=== PATIENT | female | born 1995 | race African-American/Black ===

== ENCOUNTER 2019-07-31 15:51 | Emergency (ER) | payer OTHER ==
--- NOTE | 2019-07-31 15:55 | PDOC ---
Rapid Medical Evaluation Time Seen by Provider: 07/31/19 15:52 Medical Evaluation: 07/31/19 15:54 CC: 9wks with vaginal spotting. LMP-05/23 PE: deferred Orders: PVB w/u Patient will proceed to ED for further evaluation.
[2019-07-31 15:59] VITALS: BP 111/76; PULSE 76; TEMP 98.5; BMI 40.6
[2019-07-31 16:35] LABS: EPI CELLS 34.6 /HPF (0-5/HPF); HYALINE CASTS 9 /lpf (0-8); PH,URINE 5.5 (5.0-8.0); URINE APPEARANCE CLOUDY; URINE BACTERIA 508.1 /hpf (NEGATIVE); URINE BILIRUBIN NEGATIVE (NEGATIVE); URINE COLOR YELLOW; URINE GLUCOSE (UA) NEGATIVE (NEGATIVE); URINE KETONE NEGATIVE (NEGATIVE); URINE LEUK ESTERASE NEGATIVE (NEGATIVE); URINE NITRITE NEGATIVE (NEGATIVE); URINE PROTEIN 1+ (NEGATIVE); URINE UROBILINOGEN 0.2 mg/dL (0.2-1.0); URINE WBC 3 /hpf (0-5)
[2019-07-31 16:49] LABS: BASO % 0.5 % (0-2.0); EOS % 2.5 % (0-4.5); HEMATOCRIT 36.7 % (32.4-45.2); HEMOGLOBIN 12.4 GM/dL (10.7-15.3); LYMPH % 36.4 % (8-40); MCH 30.9 pg (25.7-33.7); MCHC 33.7 g/dl (32.0-36.0); MEAN CELL VOLUME 91.6 fl (80-96); MEAN PLT VOLUME 8.4 fl (7.5-11.1); MONO % 4.9 % (3.8-10.2); NEUT % 55.7 % (42.8-82.8); PLATELET COUNT 291 K/MM3 (134-434); RBC 4.01 M/mm3 (3.60-5.2); WHITE BLOOD COUNT 9.8 K/mm3 (4.0-10.0)
--- NOTE | 2019-07-31 17:00 | PDOC ---
History of Present Illness - General Chief Complaint: Vaginal Bleeding Stated Complaint: 10 WK PREG / BLEED Time Seen by Provider: 07/31/19 15:52 History Source: Patient Exam Limitations: No Limitations - History of Present Illness Travel History: No Initial Comments: 07/31/19 16:38 23-year-old G3, P1 female currently 10 weeks presents to ED with dark brown discharge noted this morning upon upon wiping after urination patient denies abdominal pain, recent intercourse, or history of ovarian cyst. Patient does state had an ultrasound done on July 25 which showed a heart rate of 184 bpm measuring 9 weeks 3 days. patient has no urinary complaints or bowel complaint Aggravating Factors: improves with: None Alleviating Factors: improves with: None Past History - Travel Traveled outside of the country in the last 30 days: No Close contact w/someone who was outside of country & ill: No - Past Medical History Allergies/Adverse Reactions: Allergies Allergy/AdvReac Type Severity Reaction Status Date / Time No Known Allergies Allergy Verified 07/31/19 16:35 Home Medications: Ambulatory Orders NK [No Known Home Medication] 07/31/19 Asthma: Yes COPD: No - Reproductive History (#): 3 Para: 1 - Immunization History Immunization Up to Date: Yes - Psycho Social/Smoking Cessation Hx Smoking History: Never smoked Information on smoking cessation initiated: No Hx Alcohol Use: No Drug/Substance Use Hx: No Patient Lives Alone: No Lives with/in: spouse/SO Review of Systems - Review of Systems Able to Perform ROS?: No Is the patient limited Persian proficient: No Constitutional: No: Symptoms Reported ABD/GI: No: Abdominal cramping : Yes: Discharge (pink - brownish ) Integumentary: No: Symptoms Reported Neurological: No: Symptoms reported Hematologic/Lymphatic: No: Symptoms Reported *Physical Exam - Vital Signs Last Vital Signs Temp Pulse Resp BP Pulse Ox 98.5 F 76 17 111/76 100 07/31/19 15:56 07/31/19 15:56 07/31/19 15:56 07/31/19 15:56 07/31/19 15:56 - Physical Exam General Appearance: Yes: Nourished, Appropriately Dressed. No: Apparent Distress HEENT: positive: EOMI. negative: Pale Conjunctivae Neck: positive: Supple Respiratory/Chest: positive: Lungs Clear, Normal Breath Sounds. negative: Respiratory Distress, Accessory Muscle Use Cardiovascular: positive: Regular Rhythm, Regular Rate. negative: Murmur Gastrointestinal/Abdominal: positive: Soft. negative: Tenderness Musculoskeletal: negative: CVA Tenderness Extremity: positive: Normal Inspection Integumentary: positive: Normal Color, Warm, Moist Neurologic: positive: Motor Strength 5/5 (ambulatory) ED Treatment Course - LABORATORY CBC & Chemistry Diagram: 07/31/19 16:15 07/31/19 16:15 - ADDITIONAL ORDERS Additional order review: Laboratory Results 07/31/19 16:21 Urine Color Yellow Urine Appearance Cloudy Urine pH 5.5 Ur Specific Majestic 1.024 Urine Protein 1+ H Urine Glucose (UA) Negative Urine Ketones Negative Urine Blood 3+ H Urine Nitrite Negative Urine Bilirubin Negative Urine Urobilinogen 0.2 Ur Leukocyte Esterase Negative Urine WBC (Auto) 3 Urine Casts (Auto) 9 U Epithel Cells (Auto) 34.6 Urine Bacteria (Auto) 508.1 07/31/19 16:15 RBC 4.01 MCV 91.6 MCHC 33.7 RDW 13.0 MPV 8.4 Neutrophils % 55.7 Lymphocytes % 36.4 Monocytes % 4.9 Eosinophils % 2.5 Basophils % 0.5 Medical Decision Making - Medical Decision Making 07/31/19 17:02 Chief complaint: Spotting after wiping herself with urination, 10 weeks Exam: no abd tenderness. no discharge or bleeding, vss Plan: labs, urine, u/s 07/31/19 17:12 Laboratory Tests 07/31/19 07/31/19 07/31/19 16:15 16:15 16:21 WBC 9.8 Hgb 12.4 Hct 36.7 Neutrophils % 55.7 PT with INR 11.30 INR 0.96 PTT (Actin FS) 28.1 Ur Leukocyte Esterase Negative Urine WBC (Auto) 3 Urine Casts (Auto) 9 07/31/19 17:56 Ultrasound shows an intrauterine measuring 10 weeks 1 day. heart rate is measured at 159 bpm. Both ovaries appear unremarkable with normal vascular flow. Explained to patient this may do may be due to exertional sexual intercourse and to try different positions and force. patient may follow-up with her [facility] Discharge - Discharge Information Problems reviewed: Yes Clinical Impression/Diagnosis: Spotting during in first trimester Condition: Good Disposition: HOME - Follow up/Referral - Patient Discharge Instructions Patient Printed Discharge Instructions: The Truth About Sex During Additional Instructions: May take Tylenol as needed for any discomfort. Please avoid exertional sexual intercourse and follow-up with your [facility] as scheduled this Wednesday - Post Discharge Activity
[2019-07-31 17:15] LABS: URINE RBC 10.1 /hpf (0-4)
[2019-07-31 17:31] LABS: ALBUMIN 3.4 g/dl (3.4-5.0); BILIRUBIN,TOTAL 0.4 mg/dL (0.2-1); BLOOD UREA NITROGEN 14.2 mg/dL (7-18); CALCIUM 9.1 mg/dL (8.5-10.1); CREATININE 0.8 mg/dL (0.55-1.3); POTASSIUM 3.7 mmol/L (3.5-5.1); TOT PROT 7.1 g/dl (6.4-8.2)
[2019-07-31 19:54] LABS: INR 0.95 (0.83-1.09); PROTHROMBIN TIME (PATIENT) 11.2 SEC (9.7-13.0)
== END 2019-07-31 18:25 | disposition home or self-care (01) ==
LOC: JER 15:51
DX: O26.891 Other specified pregnancy related conditions, first trimester (principal); O26.851 Spotting complicating pregnancy, first trimester; Z3A.10 10 weeks gestation of pregnancy
CPT/HCPCS: 36415; 76801-TC; 80053; 81003; 84702; 85025; 85610; 85730; 86850; 86900; 86901; 87086; 99282-25

== ENCOUNTER 2021-08-29 07:00 | Inpatient (IN) | payer OTHER ==
[2021-08-29 08:54] VITALS: BMI 39.8
[2021-08-29 08:58] LABS: BASO % 0.3 % (0-2.0); HEMATOCRIT 31.7 % (32.4-45.2); HEMOGLOBIN 10.7 GM/dL (10.7-15.3); LYMPH % 28.2 % (8-40); MCH 29.2 pg (25.7-33.7); MCHC 33.7 g/dl (32.0-36.0); MEAN CELL VOLUME 86.7 fl (80-96); MEAN PLT VOLUME 8.9 fl (7.5-11.1); MONO % 7.4 % (3.8-10.2); NEUT % 63.1 % (42.8-82.8); PLATELET COUNT 246 10^3/uL (134-434); RBC 3.65 M/mm3 (3.60-5.2); RDW 14.7 % (11.6-15.6); WHITE BLOOD COUNT 8.4 K/mm3 (4.0-10.0)
[2021-08-29 09:03] LABS: INR 0.96 (0.83-1.09); PROTHROMBIN TIME (PATIENT) 10.8 SEC (9.7-13.0)
[2021-08-29 09:06] LABS: ACTIVATED PTT 24.3 SECONDS (25.2-36.5)
[2021-08-29 09:22] LABS: CALCIUM 8.4 mg/dL (8.5-10.1)
[2021-08-29 09:26] LABS: CREATININE 0.7 mg/dL (0.55-1.3)
[2021-08-29 11:53] LABS: HIV INTERPRETATION NEGATIVE (NEGATIVE)
[2021-08-29] MEDS ORDERED: OXYTOCIN 30 UNITS in 0.9% NS 30 UNIT/500 ML INFUS.BAG IVPB ONE (12:42)
[2021-08-29] MEDS ORDERED: OXYTOCIN 30 UNITS in 0.9% NS 30 UNIT/500 ML INFUS.BAG IVPB SCH (13:15)
[2021-08-29] MEDS ORDERED: DEXTROSE 5%-LACTATED RINGERS 1,000 ML IV SCH (13:15)
[2021-08-29] MEDS ORDERED: CITRIC ACID/SODIUM CITRATE 30 ML UNIT-DOSE CUP PO ONE (17:54)
[2021-08-29] MEDS ORDERED: ELECTROLYTE-148 SOLN 500 ML IV ONE (17:54)
[2021-08-29] MEDS ORDERED: ELECTROLYTE-148 SOLN 1,000 ML IV SCH (18:00)
[2021-08-29] MEDS ORDERED: morphine SULFATE (PF) 1 MG/2 ML SYRINGE ONE (18:19)
[2021-08-29] MEDS ORDERED: OXYTOCIN 10 UNITS/ML VIAL ONE (18:52)
[2021-08-29] MEDS ORDERED: OXYTOCIN 20 UNITS in 0.9% NS 20 UNIT/1,000 ML INFUS.BAG IV ONE (18:53)
[2021-08-29] MEDS ORDERED: KETOROLAC TROMETHAMINE 30 MG/1 ML VIAL ONE (18:56)
[2021-08-29] MEDS ORDERED: ONDANSETRON 4 MG/2 ML VIAL ONE (18:56)
[2021-08-29] MEDS ORDERED: PHENYLEPHRINE HCL 10 MG/1 ML SINGLE DOSE VIAL ONE (19:03)
[2021-08-29] MEDS ORDERED: ACETAMINOPHEN 325 MG TABLET (FP) PO PRN (19:40)
[2021-08-29] MEDS ORDERED: SENNOSIDES/DOCUSATE COMBO (SENNA PLUS) TABLET (UD) PO PRN (19:40)
[2021-08-29] MEDS ORDERED: METHYLERGONOVINE MALEATE 0.2 MG/1 ML AMP IM PRN (19:40)
[2021-08-29] MEDS ORDERED: OXYTOCIN 20 UNITS in 0.9% NS 20 UNIT/1,000 ML INFUS.BAG IV SCH (19:45)
[2021-08-29] MEDS ORDERED: IBUPROFEN 800 MG/8 ML IJ IVPB ONE (20:09)
[2021-08-29] MEDS: IBUPROFEN 800 MG/8 ML IJ IVPB PRN (20:15)
[2021-08-30] MEDS: IBUPROFEN 800 MG/8 ML IJ IVPB PRN (05:22)
[2021-08-30] MEDS ORDERED: oxyCODONE HCL 5 MG TABLET PO PRN ×2 (07:41)
[2021-08-30 08:17] LABS: BASO % 0.1 % (0-2.0); EOS % 0.6 % (0-4.5); HEMATOCRIT 27.4 % (32.4-45.2); HEMOGLOBIN 9.2 GM/dL (10.7-15.3); LYMPH % 19.8 % (8-40); MCHC 33.6 g/dl (32.0-36.0); MEAN CELL VOLUME 86.1 fl (80-96); MEAN PLT VOLUME 8.3 fl (7.5-11.1); MONO % 8.7 % (3.8-10.2); NEUT % 70.8 % (42.8-82.8); PLATELET COUNT 200 10^3/uL (134-434); RBC 3.18 M/mm3 (3.60-5.2); RDW 14.9 % (11.6-15.6); WHITE BLOOD COUNT 11.1 K/mm3 (4.0-10.0)
[2021-08-30] MEDS: PRENATAL VITAMINS W/ FOLIC ACID TABLET (FP) PO SCH (10:04)
[2021-08-30] MEDS: SIMETHICONE 80 MG TAB.CHEW (FP) PO PRN ×2 (11:43→21:59)
[2021-08-30] MEDS: IBUPROFEN 600 MG TABLET (FP) PO PRN ×2 (14:35→21:58)
[2021-08-30] MEDS ORDERED: BISACODYL 10 MG SUPP.RECT RC PRN (19:41)
[2021-08-30 20:24] VITALS: TEMP 98.5
[2021-08-31] MEDS: IBUPROFEN 600 MG TABLET (FP) PO PRN ×3 (05:34→15:04)
[2021-08-31] MEDS: SIMETHICONE 80 MG TAB.CHEW (FP) PO PRN (05:35)
[2021-08-31] MEDS: PRENATAL VITAMINS W/ FOLIC ACID TABLET (FP) PO SCH (09:44)
[2021-08-31 15:32] VITALS: BP 112/76; PULSE 97
== END 2021-08-31 15:25 | disposition home or self-care (01) | DRG 540 ==
LOC: JLDR 07:00 → J3W 22:03
PROVIDERS: ADMIT Obstetrics & Gynecology; ATTEND Obstetrics & Gynecology
PROC: 10D00Z1 Extraction of Products of Conception, Low, Open Approach (ICD-10-PCS; principal; 2021-08-29)
DX: O32.2XX0 Maternal care for transverse and oblique lie, not applicable or unspecified (principal); Z3A.39 39 weeks gestation of pregnancy; Z37.0 Single live birth
CPT/HCPCS: 36415; 80048; 85025; 85610; 85730; 86780; 86850; 86900; 86901; 87389; 88307-TC; C9803; U0003; U0005

== ENCOUNTER 2023-08-10 15:25 | Inpatient (IN) | payer OTHER ==
[2023-08-10] MEDS ORDERED: LABETALOL HCL 20 MG/4 ML VIAL IVPUSH ONE ×3 (16:05→17:00)
[2023-08-10] MEDS ORDERED: BETAMET ACET/BETAMET NA PH 30 MG/5 ML VIAL IM ONE (16:10)
[2023-08-10] MEDS ORDERED: LABETALOL HCL 20 MG/4 ML VIAL ONE ×2 (16:13→16:21)
[2023-08-10] MEDS ORDERED: ELECTROLYTE-148 SOLN 1,000 ML IV SCH (16:15)
[2023-08-10] MEDS ORDERED: MAGNESIUM 4GM/H20 - 4 GM/100 ML IVPB IVPB ONE ×2 (16:15→16:29)
[2023-08-10] MEDS ORDERED: MAGNESIUM SULFATE 20GM/500ML - 20 GM/500 ML INFUS.BAG ONE (16:29)
[2023-08-10] MEDS ORDERED: AMPICILLIN SODIUM 2 GM VIAL IVPB ONE (16:30)
[2023-08-10] MEDS ORDERED: BETAMET ACET/BETAMET NA PH 30 MG/5 ML VIAL ONE (16:30)
[2023-08-10] MEDS ORDERED: AMPICILLIN SODIUM 2 GM VIAL ONE (16:30)
[2023-08-10 16:34] LABS: BASO % 0.2 % (0-2.0); EOS % 0.8 % (0-4.5); HEMOGLOBIN 10.6 GM/dL (10.7-15.3); LYMPH % 27.2 % (8-40); MCH 23.9 pg (25.7-33.7); MCHC 31.1 g/dl (32.0-36.0); MEAN CELL VOLUME 76.8 fl (80-96); MEAN PLT VOLUME 8.9 fl (7.5-11.1); MONO % 6.7 % (3.8-10.2); NEUT % 65.1 % (42.8-82.8); PLATELET COUNT 321 10^3/uL (134-434); RBC 4.43 M/mm3 (3.60-5.2); RDW 17.9 % (11.6-15.6); RETICULOCYTES 1.81 % (0.5-1.5); WHITE BLOOD COUNT 10.3 K/mm3 (4.0-10.0)
[2023-08-10 16:42] LABS: INR 0.81 (0.83-1.09); PROTHROMBIN TIME (PATIENT) 9.4 SEC (9.7-13.0)
[2023-08-10 16:44] LABS: ACTIVATED PTT 26.1 SECONDS (25.2-36.5)
[2023-08-10] MEDS ORDERED: NIFEdipine 10 MG CAPSULE (FP) ONE (16:44)
[2023-08-10] MEDS ORDERED: NIFEdipine 10 MG CAPSULE (FP) PO ONE (17:00)
[2023-08-10] MEDS ORDERED: hydrALAZINE HCL 20 MG/ML VIAL IVPUSH ONE (17:00)
[2023-08-10 17:09] LABS: POTASSIUM 3.7 mmol/L (3.5-5.1)
[2023-08-10 17:11] LABS: CALCIUM 7.5 mg/dL (8.5-10.1)
[2023-08-10 17:12] LABS: BLOOD UREA NITROGEN 21.1 mg/dL (7-18)
[2023-08-10 17:15] LABS: CREATININE 1.3 mg/dL (0.55-1.3)
[2023-08-10] MEDS: MAGNESIUM SULFATE 20GM/500ML - 20 GM/500 ML INFUS.BAG IVPB SCH (17:22)
[2023-08-10 17:24] LABS: URIC ACID 5.6 mg/dL (2.6-7.2)
[2023-08-10 18:02] VITALS: BMI 38.2
[2023-08-10] MEDS ORDERED: morphine SULFATE/PF 1 MG/2 ML (2cc Syringe - QUVA) ONE (19:37)
[2023-08-10] MEDS ORDERED: FENTANYL CITRATE/PF 50 MCG/ML VIAL ONE (20:15)
[2023-08-10] MEDS ORDERED: MIDAZOLAM HCL 2 MG/2 ML SINGLE DOSE VIAL ONE (20:15)
[2023-08-10] MEDS ORDERED: ONDANSETRON 4 MG/2 ML VIAL IVPUSH PRN (21:08)
[2023-08-10] MEDS ORDERED: ACETAMINOPHEN 325 MG TABLET (FP) PO PRN (21:08)
[2023-08-10] MEDS ORDERED: METHYLERGONOVINE MALEATE 0.2 MG/1 ML AMP IM PRN (21:18)
[2023-08-10] MEDS ORDERED: IBUPROFEN 800 MG/8 ML IJ IVPB PRN (21:18)
[2023-08-10] MEDS ORDERED: ACETAMINOPHEN 1000 MG/100 ML BAG IVPB PRN (21:24)
[2023-08-10] MEDS ORDERED: NIFEdipine E.R. 30 MG TABLET PO SCH (21:30)
[2023-08-10] MEDS ORDERED: NIFEdipine E.R. 30 MG TABLET PO ONE (21:35)
[2023-08-10] MEDS ORDERED: ACETAMINOPHEN INJECTION 100 ML IVPB ONE (21:52)
[2023-08-10] MEDS ORDERED: LABETALOL HCL 200 MG TABLET (FP) PO SCH (23:00)
[2023-08-10] MEDS ORDERED: LABETALOL HCL 200 MG TABLET (FP) ONE (23:18)
[2023-08-10] MEDS: OXYTOCIN 20 UNITS in 0.9% NS 20 UNIT/1,000 ML INFUS.BAG IV SCH (23:45)
[2023-08-11] MEDS: AMPICILLIN - 1 GM in SODIUM CHLORIDE 100 ML IVPB SCH ×3 (00:30→08:06)
[2023-08-11] MEDS ORDERED: OXYTOCIN 20 UNITS in 0.9% NS 20 UNIT/1,000 ML INFUS.BAG IV ONE ×2 (00:31→13:37)
[2023-08-11] MEDS ORDERED: LABETALOL HCL 20 MG/4 ML VIAL ONE ×2 (01:14→02:14)
[2023-08-11] MEDS ORDERED: LABETALOL HCL 20 MG/4 ML VIAL IVPUSH ONE ×2 (01:30→02:00)
[2023-08-11] MEDS ORDERED: AMPICILLIN SODIUM 1 GM VIAL ONE ×2 (04:37→07:56)
[2023-08-11] MEDS ORDERED: MAGNESIUM SULFATE 20GM/500ML - 20 GM/500 ML INFUS.BAG ONE ×2 (07:07→18:11)
[2023-08-11] MEDS: MAGNESIUM SULFATE 20GM/500ML - 20 GM/500 ML INFUS.BAG IVPB SCH ×3 (07:10→18:26)
[2023-08-11] MEDS ORDERED: SODIUM CHLORIDE 100 ML IVPB ONE ×2 (07:56→07:57)
[2023-08-11 08:06] LABS: HEMATOCRIT 35.2 % (32.4-45.2); HEMOGLOBIN 10.9 GM/dL (10.7-15.3); MCH 24.1 pg (25.7-33.7); MCHC 30.9 g/dl (32.0-36.0); MEAN CELL VOLUME 77.9 fl (80-96); MEAN PLT VOLUME 9.4 fl (7.5-11.1); PLATELET COUNT 347 10^3/uL (134-434); RBC 4.52 M/mm3 (3.60-5.2); RDW 18.3 % (11.6-15.6); WHITE BLOOD COUNT 17.8 K/mm3 (4.0-10.0)
[2023-08-11] MEDS ORDERED: NIFEdipine E.R. 30 MG TABLET PO ONE (08:45)
[2023-08-11] MEDS: NIFEdipine E.R. 30 MG TABLET PO SCH (08:50)
[2023-08-11] MEDS ORDERED: oxyCODONE HCL 5 MG TABLET PO PRN ×2 (09:18)
[2023-08-11] MEDS: PRENATAL VITAMINS W/ FOLIC ACID TABLET (FP) PO SCH (09:19)
[2023-08-11 09:26] LABS: ANISOCYTOSIS 0; MACROCYTOSIS 0
[2023-08-11] MEDS ORDERED: LABETALOL HCL 200 MG TABLET (FP) ONE ×2 (11:36→14:11)
[2023-08-11] MEDS ORDERED: LABETALOL HCL 200 MG TABLET (FP) PO ONE (12:00)
[2023-08-11] MEDS: OXYTOCIN 20 UNITS in 0.9% NS 20 UNIT/1,000 ML INFUS.BAG IV SCH (13:44)
[2023-08-11] MEDS: LABETALOL HCL 200 MG TABLET (FP) PO SCH ×2 (14:13→22:50)
[2023-08-11] MEDS ORDERED: IBUPROFEN 600 MG TABLET (FP) PO ONE (16:02)
[2023-08-11] MEDS: IBUPROFEN 600 MG TABLET (FP) PO PRN ×2 (16:03→23:38)
[2023-08-11] MEDS ORDERED: BISACODYL 10 MG SUPP.RECT RC PRN (21:18)
[2023-08-11] MEDS: SENNOSIDES/DOCUSATE COMBO (SENNA PLUS) TABLET (UD) PO PRN (22:30)
[2023-08-11] MEDS: FERROUS SO4 325 MG TABLET (FP) PO SCH (22:30)
[2023-08-11] MEDS: SIMETHICONE 80 MG TAB.CHEW (FP) PO PRN (23:38)
[2023-08-12] MEDS: SIMETHICONE 80 MG TAB.CHEW (FP) PO PRN (06:17)
[2023-08-12] MEDS: LABETALOL HCL 200 MG TABLET (FP) PO SCH ×3 (06:17→22:42)
[2023-08-12] MEDS: NIFEdipine E.R. 30 MG TABLET PO SCH (08:47)
[2023-08-12] MEDS: IBUPROFEN 600 MG TABLET (FP) PO PRN ×3 (08:47→22:42)
[2023-08-12] MEDS: FERROUS SO4 325 MG TABLET (FP) PO SCH ×2 (09:40→22:42)
[2023-08-12] MEDS: PRENATAL VITAMINS W/ FOLIC ACID TABLET (FP) PO SCH (09:41)
[2023-08-12] MEDS ORDERED: FLU VACCINE (FLULAVAL) PF 60 MCG/0.5 ML SYRINGE 2023-2024 IM ONE (10:00)
[2023-08-12] MEDS ORDERED: DIPHTH,PERTUSS(ACELL),TET 0.5 ML DISP.SYRIN IM ONE (10:00)
[2023-08-12] MEDS: OXYTOCIN 20 UNITS in 0.9% NS 20 UNIT/1,000 ML INFUS.BAG IV SCH (20:31)
[2023-08-12] MEDS: AMPICILLIN - 1 GM in SODIUM CHLORIDE 100 ML IVPB SCH (20:36)
[2023-08-12] MEDS: SENNOSIDES/DOCUSATE COMBO (SENNA PLUS) TABLET (UD) PO PRN (22:42)
[2023-08-13] MEDS: LABETALOL HCL 200 MG TABLET (FP) PO SCH ×3 (06:03→21:39)
[2023-08-13] MEDS: IBUPROFEN 600 MG TABLET (FP) PO PRN ×3 (06:11→21:40)
[2023-08-13] MEDS ORDERED: NIFEdipine 10 MG CAPSULE (FP) PO ONE (07:00)
[2023-08-13] MEDS: NIFEdipine E.R. 30 MG TABLET PO SCH (09:13)
[2023-08-13] MEDS: SIMETHICONE 80 MG TAB.CHEW (FP) PO PRN ×2 (09:14→21:40)
[2023-08-13] MEDS: PRENATAL VITAMINS W/ FOLIC ACID TABLET (FP) PO SCH (09:15)
[2023-08-13] MEDS: ACETAMINOPHEN 325 MG TABLET (FP) PO PRN ×2 (09:15→16:13)
[2023-08-13] MEDS: FERROUS SO4 325 MG TABLET (FP) PO SCH ×2 (09:40→21:40)
[2023-08-13] MEDS ORDERED: NIFEdipine E.R. 30 MG TABLET PO STA (21:02)
[2023-08-13] MEDS: SENNOSIDES/DOCUSATE COMBO (SENNA PLUS) TABLET (UD) PO PRN (21:43)
[2023-08-14] MEDS: LABETALOL HCL 200 MG TABLET (FP) PO SCH ×2 (06:10→13:36)
[2023-08-14] MEDS: ACETAMINOPHEN 325 MG TABLET (FP) PO PRN (08:08)
[2023-08-14] MEDS: SIMETHICONE 80 MG TAB.CHEW (FP) PO PRN (08:08)
[2023-08-14] MEDS: NIFEdipine E.R. 30 MG TABLET PO SCH (08:08)
[2023-08-14] MEDS: PRENATAL VITAMINS W/ FOLIC ACID TABLET (FP) PO SCH (10:14)
[2023-08-14] MEDS: FERROUS SO4 325 MG TABLET (FP) PO SCH (10:14)
[2023-08-14 14:16] VITALS: BP 154/104; PULSE 91; RESP 18; TEMP 98.6
== END 2023-08-14 15:00 | disposition home or self-care (01) | DRG 785 ==
LOC: JDEL 15:25 → JLDR 15:55 → J3W 08-11 21:04
PROVIDERS: ADMIT Obstetrics & Gynecology; ATTEND Obstetrics & Gynecology
PROC: 10D00Z1 Extraction of Products of Conception, Low, Open Approach (ICD-10-PCS; principal; 2023-08-10)
PROC: 0UL70ZZ Occlusion of Bilateral Fallopian Tubes, Open Approach (ICD-10-PCS; 2023-08-10)
DX: O36.5930 Maternal care for other known or suspected poor fetal growth, third trimester, not applicable or unspecified (principal); O11.4 Pre-existing hypertension with pre-eclampsia, complicating childbirth; Z3A.33 33 weeks gestation of pregnancy; Z37.0 Single live birth; Z30.2 Encounter for sterilization
CPT/HCPCS: 36415; 80048; 82977; 83010; 84450; 84460; 84550; 85025; 85045; 85610; 85730; 86780; 86850; 86900; 86901; 90686; 90715; 96372; G0008